=== PATIENT | female | born 1975 | race Caucasian/White ===

== ENCOUNTER → 2020-12-30 | Outpatient (CLI) | payer OTHER, SELFPAY ==
[2020-12-30 08:35] VITALS: BMI 28.4
[2021-01-01 04:09] LABS: Chlamydia By Nucleic Acid AMP Negative (Negative)
[2021-01-01 05:12] LABS: Gonococcus By Nucleic Acid AMP Negative (Negative)
== END | disposition home or self-care (01) ==
LOC: LABSPEC 12:51
PROVIDERS: PCP Family Medicine; Visit Provider Nurse Practitioner Women's Health
DX: N89.8 Other specified noninflammatory disorders of vagina (principal); Z11.3 Encounter for screening for infections with a predominantly sexual mode of transmission
CPT/HCPCS: 87070; 87205; 87491; 87591